=== PATIENT | female | born 1945 | race Caucasian/White ===

== ENCOUNTER 2017-05-01 04:26 | Inpatient (IN) | payer OTHER ==
[2017-05-01] MEDS ORDERED: NS 1,000 ML IV ONE ×2 (04:33→12:18)
[2017-05-01] MEDS ORDERED: ONDANSETRON 4 MG/2 ML VIAL IVP ONE (04:33)
--- NOTE | 2017-05-01 04:35 | EDPHY ---
H & P HPI/ROS: HPI CHIEF COMPLAINT: Abdominal pain HISTORY OF PRESENT ILLNESS: This patient very pleasant 71-year-old female, denies any significant past medical history except for ovarian cancer. In July she was diagnosed with ovarian cancer. She completed a course of debulking surgery, chemotherapy, completed all this in December. She has been cancer free since. She presents emergency room if she has had ongoing week of abdominal pain. She states last Monday she developed abdominal pain with associated nausea. This been waxing and waning rather severe severe cramps. Denies fever. She states the pain return greatly tonight with associated nausea vomiting. 10/10 diffuse cramps mainly in her lower abdomen worse on the left side than right side. States she did have a bowel earlier today is very long and very narrowing very stringy. No blood. No urinary symptoms. Past Medical History: Ovarian cancer, small-bowel obstruction Past Surgical History: Ovarian cancer debulking Social History: Denies daily use drugs alcohol tobacco. Family History: Noncontributory ROS REVIEW OF SYSTEMS: A comprehensive 10 point review of systems is otherwise negative aside from elements mentioned in the history of present illness. Exam Constitutional appears well nontoxic triage nursing summary reviewed, vital signs reviewed, awake/alert. Eyes normal conjunctivae and sclera, EOMI, PERRLA. HENT normal inspection, atraumatic, moist mucus membranes, no epistaxis, neck supple/ no meningismus, no raccoon eyes. Respiratory clear to auscultation bilaterally, normal breath sounds, no respiratory distress, no wheezing. Cardiovascular rate normal, regular rhythm, no murmur, no edema, distal pulses normal. Gastrointestinal hyperactive bowel sounds, slight distension, diffusely tender but more tender left lower quadrant and right lower quadrant, no peritoneal signs. Genitourinary no CVA tenderness. Musculoskeletal no midline vertebral tenderness, full range of motion, no calf swelling, no tenderness of extremities, no meningismus, good pulses, neurovascularly intact. Skin pink, warm, & dry, no rash, skin atraumatic. Neurologic awake, alert and oriented x 3, AAOx3, moves all 4 extremities equally, motor intact, sensory intact, CN II-XII intact, normal cerebellar, normal vision, normal speech. Psychiatric normal mood/affect. Heme/Lymph/Immune no lymphadenopathy. Differential diagnosis includes but is not limited to and in no particular order : Bowel obstruction, appendicitis, gallbladder disease, diverticulitis, colitis , enteritis, perforated viscus, gastritis, GERD, esophagitis, urinary tract infection, pyelonephritis, kidney stones Medical Decision Making: Plan for this patient IV establishment IV fluid bolus she declined pain medicine here in emergency room. Zofran for nausea, lactic acid, CT scan abdomen pelvis with IV contrast. Rule out bowel obstruction. Re-evaluation: CT scan of the abdomen pelvis with IV contrast The results of the study are this shows a small bowel obstruction high-grade The study was read by Dr. RAMIREZ[ I viewed the images myself on the PACS system. 0722: Plan for this patient now that she has SBO will place NG tube. Consult surgery. Admit to the hospital. This patient's CT scan shows small bowel obstruction. NG tube is being placed at this time. Will consult surgery. Will admit to the hospital. 0802AM: I spoke with Dr. STONE Rodrigues agrees to admit this patient. Reason for admission small-bowel obstruction. NG tube has been ordered. Source: Patient, EMS Constitutional: Initial Vital Signs Temperature (C) 37.1 C 05/01/17 04:38 Heart Rate 92 05/01/17 04:38 Respiratory Rate 18 05/01/17 04:38 Blood Pressure 129/73 H 05/01/17 04:38 O2 Sat (%) 96 05/01/17 04:38 O2 Delivery Mode Room Air Allergies/Adverse Reactions: acetaminophen [From Tylenol] Allergy (Verified 05/01/17 12:17) ampicillin Allergy (Verified 05/01/17 04:37) Home Medications: Medication Instructions Recorded Herbals/Supplements -Info Only 1 ea PO DAILY 05/01/17 Melatonin [Melatonin 3 MG (*)] 3 mg PO HS 05/01/17 PARoxetine HCL [Paxil 10mg (*)] 5 mg PO SUMOWEFR@21 05/01/17 Tears/Dextran 70/Hypromellose 1 drop EACHEYE DAILY PRN 05/01/17 [Natural Balance Tears (*)] lamoTRIgine [LamICTAL] 25 mg PO SUMOWEFR 05/01/17 Medical Decision Making - Diagnostics Imaging Results: Imaging Impressions Abdomen CT 05/01/17 04:33 Impression: 1. High-grade small bowel obstruction with associated ascites. 2. Metastatic ovarian malignancy in the abdomen and pelvis; further evaluation with PET/CT could be considered as clinically directed. The study was performed as an emergency on-call case and discussed by telephone with Dr. Henriquez at 0720 hours. The final interpretation is concordant with the original communication. - Data Points Laboratory Results: Laboratory Results 05/01/17 04:50 05/01/17 04:50 Medications Given: Paroxetine HCl (Paxil) 5 mg PO SUMOWEFR@21 AMBER Stop: 10/28/17 20:59 Last Admin: 05/01/17 20:41 Dose: 5 mg Throat Lozenges (Cepacol Lozenge) 1 ea PO Q1H PRN PRN Reason: Sore Throat Stop: 10/28/17 17:14 Last Admin: 05/01/17 21:22 Dose: 1 ea Discontinued Medications Sodium Chloride (Ns) 1,000 mls @ 0 mls/hr IV EDNOW ONE; Wide Open PRN Reason: Protocol Stop: 05/01/17 04:34 Last Admin: 05/01/17 05:16 Dose: 1,000 mls Sodium Chloride (Ns) 1,000 mls @ 0 mls/hr IV ONCE ONE PRN Reason: Wide Open Stop: 05/01/17 12:19 Last Admin: 05/01/17 12:26 Dose: 1,000 mls Ketorolac Tromethamine (Toradol) 15 mg IVP ONCE ONE Stop: 05/01/17 12:19 Last Admin: 05/01/17 12:19 Dose: 15 mg Ondansetron HCl (Zofran) 4 mg IVP EDNOW ONE Stop: 05/01/17 04:34 Last Admin: 05/01/17 05:16 Dose: 2 mg Departure - Departure Disposition: [facility] Inpatient Acute Clinical Impression: Acute abdominal pain, Hyponatremia, SBO (small bowel obstruction) Condition: Fair
[2017-05-01] MEDS ORDERED: IOPAMIDOL (ISOVUE-300) 100 ML BTL ONE (05:11)
[2017-05-01 05:30] LABS: % IMMATURE GRANULYOCYTES 0.4 % (0.0-1.1); ABSOLUTE IMMATURE GRANULOCYTES 0.04 10^3/uL (0.00-0.10); ADD DIFF? NO; ADD MORPH? NO; ADD SCAN? NO; ATYPICAL LYMPHOCYTE FLAG 70 (0-99); FRAGMENT RBC FLAG 0 (0-99); HEMATOCRIT 35.2 % (38.0-47.0); HEMOGLOBIN 12.3 g/dL (12.6-16.3); LEFT SHIFT FLG 0 (0-99); LIPEMIA HEMOLYSIS FLAG 90 (0-99); MEAN CELL HEMOGLOBIN 31.6 pg (27.9-34.1); MEAN CELL HEMOGLOBIN CONCENTR. 34.9 g/dL (32.4-36.7); MEAN CELL VOLUME 90.5 fL (81.5-99.8); MEAN PLATELET VOLUME 8.9 fL (8.7-11.7); PLATELET CLUMPS FLAG 0 (0-99); PLATELET COUNT 304 10^3/uL (150-400); RED BLOOD CELL COUNT 3.89 10^6/uL (4.18-5.33); RED CELL DISTRIBUTION WIDTH 12.3 % (11.5-15.2)
[2017-05-01 05:40] LABS: INR 1.09 (0.83-1.16)
[2017-05-01 05:41] LABS: APTT 31.9 SEC (23.0-38.0)
[2017-05-01 05:50] LABS: ALANINE AMINOTRANSFERASE 61 IU/L (9-52); ALKALINE PHOSPHATASE 55 IU/L (38-126); ANION GAP 19 mEq/L (8-16); ASPARTATE AMINOTRANSFERASE 28 IU/L (14-46); BILIRUBIN,TOTAL 0.8 mg/dL (0.1-1.4); BILIRUBIN-CONJUGATED 0.4 mg/dL (0.0-0.5); BILIRUBIN-UNCONJUGATED 0.4 mg/dL (0.0-1.1); CALCIUM 9.1 mg/dL (8.5-10.4); CARBON DIOXIDE 16 mEq/l (22-31); CHLORIDE 95 mEq/L (97-110); CREATININE 0.7 mg/dL (0.6-1.0); GLOMERULAR FILTRATION RATE > 60; GLUCOSE 71 mg/dL (70-100); POTASSIUM 4.3 mEq/L (3.5-5.2); SODIUM 130 mEq/L (134-144)
[2017-05-01 07:16] LABS: COLOR PALE YELLOW; LEUKOCYTE ESTERASE,URINE NEGATIVE (NEGATIVE); NITRITE,URINE NEGATIVE (NEGATIVE)
[2017-05-01 07:23] LABS: MUCUS TRACE /lpf (NONE-1+)
[2017-05-01] MEDS ORDERED: HYDROmorphONE/DILAUDID 1 MG/ML INJ IVP PRN (10:26)
[2017-05-01] MEDS ORDERED: ONDANSETRON DISINTEGRATING 4 MG TAB PO PRN (10:26)
[2017-05-01] MEDS ORDERED: ACETAMINOPHEN 325 MG TAB PO PRN (10:26)
[2017-05-01] MEDS ORDERED: ONDANSETRON 4 MG/2 ML VIAL IVP PRN (10:26)
[2017-05-01] MEDS ORDERED: KETOROLAC 15 MG/1 ML SDV ONE (12:05)
[2017-05-01] MEDS ORDERED: KETOROLAC 15 MG/1 ML SDV IVP ONE (12:18)
[2017-05-01] MEDS ORDERED: TEARS/DEXTRAN 70/HYPROMELLOSE 15 ML OPHT.BTL EACHEYE PRN (17:29)
[2017-05-01] MEDS: CEPACOL LOZENGE PO PRN ×2 (17:46→21:22)
[2017-05-01] MEDS: PARoxetine HCL 10 MG TAB PO SCH (20:41)
--- NOTE | 2017-05-02 10:37 | ASMTCASEMG ---
Living Arrangements What is your living Answers: Alone arrangement? Who do you live with? Type Of Residence What kind of residence do Answers: House you live in? Discharge Plan Comments Coordination Status Comments Notes: Chart reviewed and spoke w/ DILAN Villar. Pt is a 71 y/o female admitted w/ a small bowel obstruction. Pt has a hx of ovarian cancer and has been cancer free since December of this yr. It is recommended to have a NG tube placed. Pt will most likely discharge independent when she is medically stable. No therapies ordered at this time. CM available for changes. Date Signed: 05/02/2017 10:36 AM Electronically Signed By:ANA M Anne
[2017-05-02] MEDS: D5W 1/2 NS W/ 20 KCl/L 1,000 ML IV SCH (10:46)
--- NOTE | 2017-05-02 10:49 | SOAPPROG ---
SOAP Progress Note Assessment/Plan: Assessment: SOME FLATUS, MORE COMFORTABLE/ AFEBRILE/ TOLERATING NG CLAMPED Plan:CLEARS/ SBFT 05/02/17 10:48 Objective: Vital Signs Temp Pulse Resp BP Pulse Ox 36.7 C 83 16 124/71 H 96 05/02/17 07:24 05/02/17 07:24 05/02/17 07:24 05/02/17 07:24 05/02/17 07:24 05/01/17 05/02/17 05/03/17 05:59 05:59 05:59 Intake Total 250 Output Total 550 200 Balance -550 50 PT 14.0 SEC (12.0-15.0) 05/01/17 05:40 INR 1.09 (0.83-1.16) 05/01/17 05:40 ICD10 Worksheet Patient Problems: Problems Problem Status Onset Acute abdominal pain Acute Hyponatremia Acute SBO (small bowel obstruction) Acute
[2017-05-02] MEDS: CEPACOL LOZENGE PO PRN ×2 (12:53→20:18)
[2017-05-03] MEDS: CEPACOL LOZENGE PO PRN ×2 (00:09→13:57)
[2017-05-03] MEDS: D5W 1/2 NS W/ 20 KCl/L 1,000 ML IV SCH ×2 (04:29→09:31)
--- NOTE | 2017-05-03 08:57 | SOAPPROG ---
SOAP Progress Note Assessment/Plan: Assessment: 71 yo F with hx of ovarian cancer with multiple abdominal surgeries for it, the latest being a debulking procedure in October of this year, presenting with abdominal pain 2/2 ileus vs SBO SBFT yesterday demonstrated improving distension, and no discrete point of obstruction. Tolerating NGT clamp since yesterday without N/V. Will pull NGT today. Adv to clear diet. Cont pain control S: Pt feeling much better today. Says stomach feels less distended. Having bowel movements, passing flatus. Tolerating sips without N/V. O: afebrile pt walking around room, appears comfortable, in NAD MMM No increased WOB Abd softly distended, +BS Objective: Vital Signs Temp Pulse Resp BP Pulse Ox 36.7 C 82 16 109/73 96 05/03/17 07:34 05/03/17 07:34 05/03/17 07:34 05/03/17 07:34 05/03/17 07:34 05/02/17 05/03/17 05/04/17 05:59 05:59 05:59 Intake Total 1200 Balance 1200 PT 14.0 SEC (12.0-15.0) 05/01/17 05:40 INR 1.09 (0.83-1.16) 05/01/17 05:40 ICD10 Worksheet Patient Problems: Problems Problem Status Onset Acute abdominal pain Acute Hyponatremia Acute SBO (small bowel obstruction) Acute
[2017-05-03] MEDS: lamoTRIgine 25 MG TAB PO SCH (09:15)
[2017-05-03] MEDS: PARoxetine HCL 10 MG TAB PO SCH (20:31)
[2017-05-03] MEDS ORDERED: CALCIUM CARBONATE 500 MG CHEWABLE TAB PO PRN ×2 (21:41→21:51)
[2017-05-04] MEDS ORDERED: FAMOTIDINE 20 MG TAB PO SCH (09:00)
[2017-05-04] MEDS: FAMOTIDINE 20 MG TAB PO SCH ×2 (11:11→21:27)
--- NOTE | 2017-05-04 11:11 | SOAPPROG ---
SOAP Progress Note Assessment/Plan: Assessment: 71 yo F with hx of ovarian cancer with multiple abdominal surgeries for it, the latest being a debulking procedure in October of this year, presenting with abdominal pain 2/2 ileus vs SBO SBFT demonstrated improving distension, and no discrete point of obstruction. Adv diet today dependent on results of abd XR Cont pain control S: Pt feeling much better today. Says stomach feels less distended. Having bowel movements, passing flatus. Tolerating clears. O: afebrile appears comfortable, in NAD MMM No increased WOB Abd softly distended, +BS Objective: Vital Signs Temp Pulse Resp BP Pulse Ox 37.0 C 85 20 115/67 93 05/04/17 08:00 05/04/17 08:00 05/04/17 08:00 05/04/17 08:00 05/04/17 08:00 05/03/17 05/04/17 05/05/17 05:59 05:59 05:59 Intake Total 1200 2053 Output Total 1000 600 Balance 1200 1053 -600 PT 14.0 SEC (12.0-15.0) 05/01/17 05:40 INR 1.09 (0.83-1.16) 05/01/17 05:40 ICD10 Worksheet Patient Problems: Problems Problem Status Onset Acute abdominal pain Acute Hyponatremia Acute SBO (small bowel obstruction) Acute
--- NOTE | 2017-05-04 17:58 | GCON ---
[f rep st] CONSULTATION DATE OF CONSULTATION: 05/04/2017 REASON FOR CONSULTATION: Urinary retention, suprapubic discomfort. HISTORY OF PRESENT ILLNESS: This is a pleasant 71-year-old female with a significant medical history of ovarian cancer, of which was diagnosed in July of 2016. She has undergone debulking surgery, chemotherapy, completed as of December. She came to the ER with abdominal pain, was diagnosed with small bowel obstruction, for which she is being treated conservatively. While she was here, patient had a bladder scan for unclear reasons, which showed that she was retaining about 200 mL of urine. She fernandes d felt like she was emptying completely. Upon further questioning, it does appear that she has had d iscomfort at the end of urination present consistently for the last year. No gross hematuria, but do es report being told that she had microscopic hematuria and, indeed, she had planned on scheduling an appointment with a urologist for evaluation before being diagnosed with ovarian cancer. The patient denies gross hematuria, fecal material, air or bubbling of her urine while voiding. PAST MEDICAL HISTORY: Ovarian cancer, small bowel obstruction. PAST SURGICAL HISTORY: Ovarian cancer debulking, hysterectomy. SOCIAL HISTORY: Denies use of drugs, alcohol, tobacco. FAMILY HISTORY: Noncontributory. REVIEW OF SYSTEMS: A 10-point review of systems negative except as mentioned in the HPI. LABORATORY DATA: White blood cell count 9.06, hemoglobin 12.3, hematocrit 35.2, platelets 304. Chem istry: Sodium 130, potassium 4.3, chloride 95, carbon dioxide 16, anion gap 19, BUN 11, creatinine 0 .7, glucose 71, calcium 9.1. Urinalysis was positive for 3+ blood, negative for white blood cells or nitrites. IMAGING DATA: I personally reviewed the CAT scan that the patient had of the abdomen and pelvis, whi ch does show a somewhat distended bladder, but no hydronephrosis, no renal or ureteral stones, a smal l low-attenuation cyst in the lower pole of the right kidney. She does have a more thick soft tissue scattered throughout the pelvis, likely metastatic malignancy. PHYSICAL EXAMINATION: VITAL SIGNS: Blood pressure 115/67, heart rate 85, respirations 22, O2 of 93 on room air, temperature 37. GENERAL: This is a well-nourished, well-developed female, in no acute distress. HEENT: Normocephalic, atraumatic. Extraocular movements intact. NECK: Supple. No lymp hadenopathy. Trachea midline. RESPIRATORY: No accessory respiratory muscle use. Normal breath james nds. CARDIAC: Regular rate and rhythm. No lower extremity edema. No obvious JVD. GI: Abdomen wa s soft, nondistended, nontender to palpation. No hepatosplenomegaly. : No CVA tenderness. No bl adder discomfort. PELVIC: Reveals vaginal atrophy without palpable vaginal masses. Cervix palpable , nontender. Patient's uterus has been surgically removed. No urethral caruncles on exam. INTEGUME NT: No obvious rashes or lesions. MUSCULOSKELETAL: Patient was seen walking, able to move all 4 ex tremities without difficulty. NEURO: She was alert and oriented. Affect appropriate to situation. ASSESSMENT: Microhematuria, suprapubic discomfort, mild urinary retention. At this point, patient i s asymptomatic from mild urinary retention. Recommend that a cystoscopy as outpatient be arranged fo r further evaluation of the microhematuria. Will also attempt to obtain records on patient from her surgery at [facility] where she said something may have been seen in her ureter at that time. I have o rdered a repeat urinalysis with a reflex to culture if appropriate, along with a CBC. /[id number]/MODL
[2017-05-04 18:46] LABS: COLOR COLORLESS; LEUKOCYTE ESTERASE,URINE NEGATIVE (NEGATIVE); NITRITE,URINE NEGATIVE (NEGATIVE)
[2017-05-04] MEDS: D5W 1/2 NS W/ 20 KCl/L 1,000 ML IV SCH (18:56)
[2017-05-04 19:01] LABS: MUCUS TRACE /lpf (NONE-1+)
[2017-05-04 20:17] LABS: ANION GAP 5 mEq/L (8-16); CARBON DIOXIDE 23 mEq/l (22-31); CHLORIDE 103 mEq/L (97-110); CREATININE 0.6 mg/dL (0.6-1.0); GLOMERULAR FILTRATION RATE > 60; GLUCOSE 91 mg/dL (70-100); POTASSIUM 4.1 mEq/L (3.5-5.2); SODIUM 131 mEq/L (134-144)
[2017-05-05] MEDS: D5W 1/2 NS W/ 20 KCl/L 1,000 ML IV SCH (05:27)
[2017-05-05 07:42] VITALS: BP 117/67; PULSE 83; RESP 18; TEMP 98.5; O2SAT 96
[2017-05-05] MEDS: lamoTRIgine 25 MG TAB PO SCH (08:32)
[2017-05-05] MEDS: FAMOTIDINE 20 MG TAB PO SCH (09:36)
--- NOTE | 2017-05-05 12:58 | SOAPPROG ---
SOAP Progress Note Assessment/Plan: Assessment: 71 yo F with hx of ovarian cancer with multiple abdominal surgeries for it, the latest being a debulking procedure in October of this year, presenting with abdominal pain 2/2 ileus vs SBO Tolerating regular diet. Return of bowel function Pain controlled. Dispo: to home today. Discussed c Dr. Rodrigues S: Having bowel movements, passing flatus. Tolerating diet. O: afebrile appears comfortable, in NAD MMM No increased WOB Abd softly distended, +BS 05/05/17 12:57 Objective: Vital Signs Temp Pulse Resp BP Pulse Ox 36.9 C 83 18 117/67 96 05/05/17 07:40 05/05/17 07:40 05/05/17 07:40 05/05/17 07:40 05/05/17 07:40 Laboratory Results 05/04/17 18:45 05/04/17 05/05/17 05/06/17 05:59 05:59 05:59 Intake Total 2053 800 Output Total 1000 3200 Balance 1053 -2400 PT 14.0 SEC (12.0-15.0) 05/01/17 05:40 INR 1.09 (0.83-1.16) 05/01/17 05:40 ICD10 Worksheet Patient Problems: Problems Problem Status Onset Acute abdominal pain Acute Hyponatremia Acute SBO (small bowel obstruction) Acute
--- NOTE | 2017-05-05 15:43 | ASMTCMCOM ---
CM Note CM Note Notes: Today Palliative care SKULL CHOPPER and SWer met w/ Pt. in room due to her learning that her ovarian cancer is likely back and has spread. Before we came into the room, Pt. had already contacted a hospice "[facility]" which appears to have a very small new presence on google. Appears a woman named Liane Payne is President. Could not find a working phone number. Pt. to have her outpatient oncologist at the [facility] arrange for hospice care. 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 Pt. expresses that her daughter is supportive, but can't at her home. Plans to have home hospice until she dies. It was a pleasure to meet Pt. today. Pt. d/c'ed home independently. Date Signed: 05/05/2017 03:43 PM Electronically Signed By:Rosalva Robertson LCSW
--- NOTE | 2017-05-05 16:41 | PDPCPN ---
Palliative Care Progress Note Assessment/Plan: Referring provider: Dr Rios Reason for consult: Complex medical decision making Symptom control HPI: Assessment: Physical: - Pain: none noted -tylenol PRN - bloating: likely due to cancer - has been ongoing before the SBO - control for symptoms of discomfort Emotional/psychological: Doing ok. Has a lot of support from he rfamily Advanced Care Planning: Is patient decisional?: yes Code Status: DNR MD POA: unsure who is MDPOA Plan: Evelin would like hospice care as she is not interested in further treatment for her recurrent cervical cancer. She has already contacted [facility] and is planning on speaking further with her oncologist regarding her wishes. Subjective: I'm feeling better Objective: Social History: Lives at [facility]. Has 2 children involved. Medication list reviewed ROS: General: fatigue, weakness ENT: negative Resp: negative GI: bloating : negative MS: negative Skin: negative Neuro: negative Psych: negative Functional assessment: PPS: 70% Functional status: independent Vital Signs Temp Pulse Resp BP Pulse Ox 36.9 C 83 18 117/67 96 05/05/17 07:40 05/05/17 07:40 05/05/17 07:40 05/05/17 07:40 05/05/17 07:40 Laboratory Results 05/04/17 18:45 05/04/17 05/05/17 05/06/17 05:59 05:59 05:59 Intake Total 2053 800 Output Total 1000 3200 Balance 1053 -2400 PT 14.0 SEC (12.0-15.0) 05/01/17 05:40 INR 1.09 (0.83-1.16) 05/01/17 05:40 Physical Exam - Physical Exam General Appearance: alert, no apparent distress Respiratory: No respiratory distress, No accessory muscle use Skin: normal color, warm/dry Extremities: No pedal edema Neuro/Psych: alert, oriented x 3 ICD10 Worksheet Patient Problems: Problems Problem Status Onset Acute abdominal pain Acute Hyponatremia Acute Palliative care encounter Acute SBO (small bowel obstruction) Acute - ICD10 Problem Qualifiers (1) Palliative care encounter
--- NOTE | 2017-05-05 17:02 | ASDISCHSUM ---
Discharge Information Plan Status:Home with No Needs Medically Cleared to Leave: Discharge Date:05/05/2017 12:05 PM CM D/C Disposition:Home, Routine, Self-Care ADT D/C Disposition:Home, Routine, Self-Care Projected Discharge Date:05/04/2017 12:00 AM Transportation at D/C:Family Discharge Delay Reason: Follow-Up Date:05/04/2017 12:00 AM Discharge Slot: Final Diagnosis: Placement Information Patient Contact Information Contact Name:KENDRICK Relationship:Luis Antonio Address: City:[place] Alternate Phone: [facility]/Zip Code:[place] Email: Financial Information Financial Class: Primary Plan Desc:MEDICARE INPATIENT Primary Plan Number:[id number] Secondary Plan Desc:ELOISA Secondary Plan Number:[id number] Assessment Information [facility] Initial CM Assessment Living Arrangements What is your living Answers: Alone arrangement? Who do you live with? Type Of Residence What kind of residence do Answers: House you live in? Discharge Plan Comments Coordination Status Comments Notes: Chart reviewed and spoke w/ DILAN Villar. Pt is a 71 y/o female admitted w/ a small bowel obstruction. Pt has a hx of ovarian cancer and has been cancer free since December of this yr. It is recommended to have a NG tube placed. Pt will most likely discharge independent when she is medically stable. No therapies ordered at this time. CM available for changes. Date Signed: 05/02/2017 10:36 AM Electronically Signed By:ANA M Anne [facility] CM Progress Note CM Note CM Note Notes: Today Palliative care TUMBLER PLATER and SWer met w/ Pt. in room due to her learning that her ovarian cancer is likely back and has spread. Before we came into the room, Pt. had already contacted a hospice "[facility]" which appears to have a very small new presence on google. Appears a woman named Liane Payne is President. Could not find a working phone number. Pt. to have her outpatient oncologist at the [facility] arrange for hospice care. 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 Pt. expresses that her daughter is supportive, but can't at her home. Plans to have home hospice until she dies. It was a pleasure to meet Pt. today. Pt. d/c'ed home independently. Date Signed: 05/05/2017 03:43 PM Electronically Signed By:Rosalva Robertson LCSW Intervention Information Intervention Type:*GOLDMAN-Signed Date of Service:05/02/2017 09:27 AM Patient Type:Observation Staff Member:Ruthann Sylvester Hours: Discipline: Severity: Comment: Intervention Type:*Incorrect Registration Date of Service:05/02/2017 10:35 AM Patient Type:Observation Staff Member:DILAN Colon Susan Hours: Discipline: Severity: Comment: Intervention Type:*IM-Signed Date of Service:05/05/2017 11:53 AM Patient Type:Inpatient Staff Member:Ruthann Sylvester Hours: Discipline: Severity: Comment:
== END 2017-05-05 12:05 | disposition home or self-care (01) | DRG 390 ==
LOC: EDUNIT# → INTOOBSV 07:56 → F3E 12:28 → OBSVTOIN 05-02 15:55 → F3E 05-03 17:27
PROVIDERS: ADMIT Surgery; ATTEND Surgery
DX: K56.609 Unspecified intestinal obstruction, unspecified as to partial versus complete obstruction (principal); R33.9 Retention of urine, unspecified; R31.29 Other microscopic hematuria; Z85.43 Personal history of malignant neoplasm of ovary
CPT/HCPCS: 86304-90; 96374; G0378; J1885; J2405; Q9967